=== PATIENT | male | born 1985 | race Hispanic/Latino ===

== ENCOUNTER 2018-10-25 17:59 | Emergency (ER) | payer BC ==
[2018-10-25] MEDS ORDERED: TETANUS/DIPHTHERIA TOXOID [ADULT] 0.5 ML VIAL IM ONE (18:16)
[2018-10-25] MEDS ORDERED: OCTYL 2-CYANOACRYLATE 1 EACH TP ONE (18:21)
== END 2018-10-25 18:43 | disposition home or self-care (01) ==
LOC: EDH 17:59
DX: S61.212A Laceration without foreign body of right middle finger without damage to nail, initial encounter (principal); Z87.442 Personal history of urinary calculi; W25.XXXA Contact with sharp glass, initial encounter; Y93.89 Activity, other specified; Y92.89 Other specified places as the place of occurrence of the external cause; Y99.8 Other external cause status
CPT/HCPCS: 12001; 73130; 90471; 90714